=== PATIENT | female | born 1935 | race Caucasian/White ===

== ENCOUNTER 2021-09-25 01:46 | Emergency (ER) | payer MEDICARE, BC ==
[~2021-09-25] VITALS: Ht 165.1 cm; Wt 59.4 kg
--- NOTE | 2021-09-25 01:52 | NUR ---
BIBS FOR C/O RAPID HEART RATE AND PALPITATIONS. PT A/OX4. TOLERATING R/A WELL WITH NO SOB. CONNECTED PT TO POX AND MONITOR.
--- NOTE | 2021-09-25 02:10 | NUR ---
RAC #18G S/L; PATENT AND INTACT. BLOOD COLLECTED AND SENT TO LAB
[2021-09-25 02:23] LABS: BASOPHILS # (AUTO) 0.1 K/uL (0.0-0.2); BASOPHILS % (AUTO) 0.8 % (0.0-2.0); EOSINOPHILS % (AUTO) 0.2 % (0.0-6.0); HEMATOCRIT 40 % (33-45); HEMOGLOBIN 12.9 g/dL (11.5-14.8); LYMPHOCYTES # (AUTO) 2.6 K/uL (0.8-4.8); LYMPHOCYTES % (AUTO) 36.8 % (20.0-44.0); MEAN CORPUSCULAR HGB CONC 33 g/dl (31.0-36.0); MEAN CORPUSCULAR VOLUME 85 fL (82-100); MONOCYTES # (AUTO) 0.5 K/uL (0.1-1.30); MONOCYTES % (AUTO) 7.5 % (2.0-12.0); NEUTROPHILS # (AUTO) 3.9 K/uL (1.8-8.9); NEUTROPHILS % (AUTO) 54.7 % (43.0-81.0); PLATELET COUNT (AUTO) 254 K/uL (150-450); RED BLOOD CELL COUNT(AUTO) 4.65 MIL/uL (4.0-5.2); WHITE BLOOD COUNT (AUTO) 7.1 K/uL (4.3-11.0)
--- NOTE | 2021-09-25 02:33 | NUR ---
CYNDY PARKS AT PT'S BEDSIDE
[2021-09-25 02:37] LABS: CALCIUM, SERUM 9.4 mg/dL (8.5-10.1); CARBON DIOXIDE 29 mmol/L (21-32); CHLORIDE 105 mmol/L (98-107); CREATININE 0.9 mg/dL (0.6-1.3); GLUCOSE 99 mg/dL (74-106); POTASSIUM 3.8 mmol/L (3.5-5.1); SODIUM SERUM 144 mmol/L (136-145); UREA NITROGEN, BLOOD 29 mg/dL (7-18)
[2021-09-25] MEDS ORDERED: IV NS 0.9% 1,000 ML IV ONE (03:30)
[2021-09-25] MEDS ORDERED: DIGOXIN INJ 0.5 MG/2 ML AMPUL ONE (03:36)
--- NOTE | 2021-09-25 03:52 | NUR ---
ADLS DONE. PT AMBULATORY TO RESTROOM. PT DENIES PAIN. HR 115-130
[2021-09-25] MEDS ORDERED: DIGOXIN INJ 0.5 MG/2 ML AMPUL IV ONE (04:00)
--- NOTE | 2021-09-25 04:34 | NUR ---
DIGOXIN 0.25 RESSESSMENT HR WENT FROM 115-130 & NOW IS 95-105
--- NOTE | 2021-09-25 05:16 | NUR ---
Patient discharged to home in stable condition. Written and verbal after care instructions given. Patient verbalizes understanding of instruction. PT. ambulatory with a steady gait. CALLED RADIOLOGY FOR CXR CD
[2021-09-25 05:22] VITALS: BP 160/90
[2021-09-25 12:34] LABS: LYMPHOCYTES % (MANUAL) 34 % (16-48); MONOCYTES % (MANUAL) 9 % (0-11.0); NEUTROPHILS % (MANUAL) 55 (42-76); REACTIVE LYMPHOCYTES 2 % (0-0)
== END 2021-09-25 05:24 | disposition home or self-care (01) ==
LOC: ER 01:49
DX: I48.20 Chronic atrial fibrillation, unspecified (principal); N28.9 Disorder of kidney and ureter, unspecified; Z98.890 Other specified postprocedural states; Z88.0 Allergy status to penicillin; Z60.2 Problems related to living alone
CPT/HCPCS: 36415; 71045; 80048; 80162; 84484; 85007; 85025; 93005; 96361; 96374; 99285; J1160; J7030